=== PATIENT | male | born 1965 | race Caucasian/White ===

== ENCOUNTER 2021-02-08 01:31 | Emergency (ER) | payer SELFPAY ==
[~2021-02-08] VITALS: Ht 180.3 cm; Wt 64.0 kg
[2021-02-08 01:32] VITALS: BP 141/61
[2021-02-08] MEDS ORDERED: ZIPRASIDONE MESYLATE 20 MG/ML VIAL IM ONE (01:40)
== END 2021-02-08 02:10 | disposition left against medical advice (07) ==
LOC: MED 01:31
DX: R10.9 Unspecified abdominal pain (principal); F20.9 Schizophrenia, unspecified
CPT/HCPCS: 99283